=== PATIENT | female | born 1980 | race Caucasian/White ===

== ENCOUNTER 2016-04-28 21:35 | Emergency (ER) | payer MEDICAID ==
[~2016-04-28] VITALS: Ht 177.8 cm; Wt 79.0 kg
[~2016-04-28 21:35] MED LIST: ABIL2TAB2 PO; OXCA150T PO; TRAZ50TA12 PO; ZYRT10CA PO
[2016-04-28 21:45] VITALS: BP 121/92; PULSE 90; RESP 18; TEMP 98.8; O2SAT 99
[2016-05-18] MEDS ORDERED: LURA40 PO (14:39)
[2016-05-18] MEDS ORDERED: LEVA750T PO (15:04)
[2016-06-13] MEDS ORDERED: CIPR0.3S EACH EAR (14:04)
[2016-06-13] MEDS ORDERED: FLUT50SP EACH NARE (14:04)
[2016-06-13] MEDS ORDERED: ROCE1INJ3 IM (14:04)
[2016-06-20] MEDS ORDERED: CEFD300C PO (14:42)
[2016-08-09] MEDS ORDERED: AZIT250T3 PO (15:58)
== END 2016-04-28 22:29 | disposition left against medical advice (07) ==
LOC: PHED 21:35
DX: R10.9 Unspecified abdominal pain (principal)
CPT/HCPCS: 99281

== ENCOUNTER 2016-05-15 17:53 | Emergency (ER) | payer MEDICAID ==
[~2016-05-15] VITALS: Ht 177.8 cm; Wt 79.1 kg
[2016-05-15 18:08] VITALS: BP 122/81; PULSE 96; RESP 16; TEMP 98.1; O2SAT 99
[2016-05-15 19:16] LABS: BLOOD, URINE NEG (NEG); GLUCOSE,URINE 100 mg/dL (NEG); KETONE, URINE NEG (NEG); PH, URINE 5.5 (5.0-8.5)
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
[2016-05-15 19:29] LABS: NITRITE,URINE POS (NEG)
[2016-05-15] MEDS ORDERED: SODIUM CHLOR 0.9% 1000 ML INJ 1,000 ML IV SCH (19:29)
[2016-05-15 19:30] LABS: METHOD OF COLLECTION CLEAN CATCH; URINE COLOR ORANGE (YELLW/STRAW)
[2016-05-15] MEDS ORDERED: ONDANSETRON HCL 4 MG/2 ML VIAL IVP ONE (19:30)
[2016-05-15] MEDS ORDERED: SODIUM CHLORIDE 0.9% FLUSH 5 ML FLUSH IVF PRN (19:30)
[2016-05-15] MEDS ORDERED: KETOROLAC TROMETHAMINE 30 MG/ML (IVP) VIAL IVP ONE (19:30)
[2016-05-15 19:31] LABS: BACTERIA, URINE OCC /hpf; MUCUS URINE OCC /lpf (OCC); SQUAMOUS EPITHELIAL CELL URINE > 8 /hpf (0-5)
[2016-05-15 19:32] LABS: COMMENT (UR) CULTURE INDICATED; CULTURE IF INDICATED CULTURE INDICATED; RBC, URINE 0-3 /hpf (0-3)
[2016-05-15] MEDS ORDERED: ZOLO100T PO (19:39)
[2016-05-15] MEDS ORDERED: TRIL150T PO ×2 (19:39)
[2016-05-15 19:55] LABS: BASOPHIL # 0.3 TH/MM3 (0-0.2); BASOPHIL % 2.8 % (0.0-2.0); EOSINOPHIL # 0.2 TH/MM3 (0-0.4); HEMATOCRIT 38.7 % (35.0-46.0); HEMO FLAGS DIFF FINAL; LYMPHOCYTE # 2.4 TH/MM3 (1.0-4.8); MEAN CELL VOLUME 79.6 FL (80.0-100.0); MEAN CORPUSCULAR HEMOGLOBIN 27.3 PG (27.0-34.0); MEAN CORPUSCULAR HGB CONC 34.3 % (32.0-36.0); NEUT % 64.2 % (16.0-70.0); PLATELET COUNT 261 TH/MM3 (150-450); RED BLOOD COUNT 4.86 MIL/MM3 (4.00-5.30); RED CELL DISTRIBUTION WIDTH 13.2 % (11.6-17.2); WHITE BLOOD COUNT 9.5 TH/MM3 (4.0-11.0)
[2016-05-15 20:04] LABS: CHLORIDE 102 MEQ/L (98-107); SODIUM (NA) 138 MEQ/L (136-145)
[2016-05-15 20:08] LABS: ANION GAP 8 MEQ/L (5-15); BICARBONATE 28.5 MEQ/L (21.0-32.0); BLOOD UREA NITROGEN 15 MG/DL (7-18)
[2016-05-15 20:11] LABS: ALT (GPT) 22 U/L (10-53); AST (GOT) 22 U/L (15-37); GLOMERULAR FILTRATION RATE 81 ML/MIN (>89)
[2016-05-15 20:13] LABS: TOTAL BILIRUBIN ADULT 0.3 MG/DL (0.2-1.0)
[2016-05-15 20:14] LABS: ALKALINE PHOSPHATASE 85 U/L (45-117)
[2016-05-15 20:17] LABS: POTASSIUM 4.3 MEQ/L (3.5-5.1)
[2016-05-15 20:35] VITALS: RESP 16; O2SAT 98
[2016-05-15 20:36] VITALS: BP 106/64; PULSE 74; RESP 16; O2SAT 98
[2016-05-15 21:40] VITALS: BP 101/58; PULSE 75; RESP 16; TEMP 98.2; O2SAT 96
[2016-05-15 21:41] VITALS: RESP 16
--- NOTE | 2016-05-15 21:49 | RADHPO ---
EXAM DATE/TIME: 05/15/2016 20:47 [facility] COMPARISON: CT ABDOMEN & PELVIS W/O CONTRAST, November 21, 2015, 3:13. INDICATIONS : Right flank pain. ORAL CONTRAST: No oral contrast ingested. RADIATION DOSE: 13.20 CTDIvol (mGy) MEDICAL HISTORY : Cardiovascular disease. SURGICAL HISTORY : Cholecystectomy. ENCOUNTER: Initial ACUITY: 1 day PAIN SCALE: 5/10 LOCATION: Right Flank TECHNIQUE: Volumetric scanning of the abdomen and pelvis was performed. Using automated exposure control and ad justment of the mA and/or kV according to patient size, radiation dose was kept as low as reasonably achievable to obtain optimal diagnostic quality images. FINDINGS: LOWER LUNGS: The visualized lower lungs are clear. LIVER: Homogeneous density without lesion. There is no dilation of the biliary tree. Gallbladder has been r emoved. SPLEEN: Normal size without lesion. PANCREAS: Within normal limits. KIDNEYS: Normal in size and shape. 5 mm nonobstructive calculus remains evident in the upper pole of the righ t kidney. There is no mass or hydronephrosis. ADRENAL GLANDS: Within normal limits. VASCULAR: There is no aortic aneurysm. BOWEL/MESENTERY: The stomach, small bowel, and colon demonstrate no acute abnormality. There is no free intraperitone al air or fluid. ABDOMINAL WALL: Within normal limits. RETROPERITONEUM: There is no lymphadenopathy. BLADDER: No wall thickening or mass. REPRODUCTIVE: Within normal limits. INGUINAL: There is no lymphadenopathy or hernia. MUSCULOSKELETAL: Within normal limits for patient age. CONCLUSION: Status post cholecystectomy. Stable nonobstructive calculus right kidney. No evidence of acute process. Hipolito Velasquez MD on May 15, 2016 at 21:44 Board Certified Radiologist. This report was verified electronically.
[2016-05-15] MEDS ORDERED: CEPH-460 PO (21:59)
[2016-05-15] MEDS ORDERED: cefTRIAXone INJ 1,000 MG in SODIUM CHLORIDE 0.9% INJ 100 ML IV ONE (22:00)
[2016-05-18] MEDS ORDERED: LURA40 PO (14:39)
[2016-05-18] MEDS ORDERED: LEVA750T PO (15:04)
[2016-06-13] MEDS ORDERED: ROCE1INJ3 IM (14:04)
[2016-06-13] MEDS ORDERED: FLUT50SP EACH NARE (14:04)
[2016-06-13] MEDS ORDERED: CIPR0.3S EACH EAR (14:04)
[2016-06-20] MEDS ORDERED: CEFD300C PO (14:42)
[2016-08-09] MEDS ORDERED: AZIT250T3 PO (15:58)
== END 2016-05-15 22:47 | disposition home or self-care (01) ==
LOC: PHED 17:53 → PHEFT 22:47
DX: N39.0 Urinary tract infection, site not specified (principal); N20.1 Calculus of ureter; R11.2 Nausea with vomiting, unspecified; R30.0 Dysuria
CPT/HCPCS: 74176; 80053; 81001; 83690; 84703; 85025; 87086; 96361; 96365; 96375; 99284; J0696; J1885; J2405; J7030

== ENCOUNTER 2016-08-17 07:21 | Emergency (ER) | payer MEDICAID ==
[~2016-08-17] VITALS: Ht 177.8 cm; Wt 73.9 kg
[~2016-08-17 07:21] MED LIST changes: -ABIL2TAB2 PO; +AZIT250T3 PO; +CEFD300C PO; +FLUT50SP EACH NARE; +LURA40 PO; -OXCA150T PO; +TRIL150T PO
[2016-08-17 07:29] VITALS: BP 118/78; PULSE 113; RESP 16; TEMP 97.8; O2SAT 95
[2016-08-17 07:38] VITALS: BP 118/78; PULSE 113; RESP 16; TEMP 97.8; O2SAT 95
[2016-08-17 08:51] LABS: BASOPHIL % 0.8 % (0.0-2.0); EOSINOPHIL # 0.1 TH/MM3 (0-0.4); EOSINOPHIL % 1.7 % (0.0-4.0); HEMATOCRIT 45.6 % (35.0-46.0); HEMO FLAGS DIFF FINAL; LYMPH % 20.9 % (9.0-44.0); LYMPHOCYTE # 1.1 TH/MM3 (1.0-4.8); MEAN CELL VOLUME 81.2 FL (80.0-100.0); MEAN CORPUSCULAR HEMOGLOBIN 26.6 PG (27.0-34.0); MEAN CORPUSCULAR HGB CONC 32.8 % (32.0-36.0); MONO % 16.5 % (0.0-8.0); NEUT % 60.1 % (16.0-70.0); PLATELET COUNT 233 TH/MM3 (150-450); RED BLOOD COUNT 5.62 MIL/MM3 (4.00-5.30); RED CELL DISTRIBUTION WIDTH 12.9 % (11.6-17.2)
[2016-08-17 09:00] LABS: CHLORIDE 104 MEQ/L (98-107); POTASSIUM 3.3 MEQ/L (3.5-5.1); SODIUM (NA) 138 MEQ/L (136-145)
[2016-08-17] MEDS ORDERED: ONDANSETRON HCL 4 MG/2 ML VIAL IV PUSH ONE (09:00)
[2016-08-17] MEDS ORDERED: KETOROLAC TROMETHAMINE 30 MG/ML (IVP) VIAL IV PUSH ONE (09:00)
[2016-08-17] MEDS ORDERED: SODIUM CHLOR 0.9% 1000 ML INJ 1,000 ML IV SCH (09:00)
[2016-08-17 09:03] LABS: ANION GAP 9 MEQ/L (5-15); BICARBONATE 24.6 MEQ/L (21.0-32.0); BLOOD UREA NITROGEN 9 MG/DL (7-18); BLOOD, URINE LARGE (NEG); GLUCOSE,URINE NEG (NEG); KETONE, URINE TRACE mg/dL (NEG); NITRITE,URINE NEG (NEG)
[2016-08-17 09:05] VITALS: BP 118/76; PULSE 90; RESP 16; O2SAT 98
[2016-08-17 09:06] LABS: ALT (GPT) 44 U/L (10-53); AST (GOT) 22 U/L (15-37); GLOMERULAR FILTRATION RATE 84 ML/MIN (>89)
[2016-08-17 09:08] LABS: TOTAL BILIRUBIN ADULT 0.5 MG/DL (0.2-1.0)
[2016-08-17 09:09] LABS: ALKALINE PHOSPHATASE 88 U/L (45-117)
[2016-08-17 09:11] LABS: METHOD OF COLLECTION CLEAN CATCH; URINE COLOR YELLOW (YELLW/STRAW)
[2016-08-17 09:12] LABS: SQUAMOUS EPITHELIAL CELL URINE > 8 /hpf (0-5)
[2016-08-17 09:14] LABS: COMMENT (UR) CULT NOT INDICATED; CULTURE IF INDICATED CULT NOT INDICATED
[2016-08-17] MEDS ORDERED: LOPERAMIDE HCL 2 MG CAP PO ONE (10:00)
[2016-08-17] MEDS ORDERED: LOPE2CAP PO (10:17)
[2016-08-17] MEDS ORDERED: ZOFR4TAB3 SL (10:17)
--- NOTE | 2016-08-17 10:17 | PD ---
HPI Chief Complaint: GI Complaint Time Seen by Provider: 07:52 Travel History International Travel<30 days: No Contact w/Intl Traveler<30days: No Traveled to known affect area: No History of Present Illness HPI Is a 36-year-old woman presents emergency department complaining of diffuse watery diarrhea for 3 days. She was on a Z-Otis a week ago for URI symptoms. Since she's had some nausea and vomiting, some chills, some cramps, and 3 days of worsening watery diarrhea. She also had worsening low back pain which is chronic for her. She states she is not really able keep her medications down. History Past Medical History Narrative Medical Back pain Tetanus Vaccination: < 5 Years : 3 Para: 1 Social History Alcohol Use: No Tobacco Use: No Allergies-Medications (Allergen,Severity, Reaction): Coded Allergies: Bactrim (Verified Allergy, Severe, RASH, 08/17/16) Erythromycins (Verified Allergy, Severe, VOMITING, RASH, 08/17/16) Morphine (Verified Allergy, Severe, headaches, 08/17/16) Penicillin (Verified Allergy, Severe, Hives, 08/17/16) Reported Meds & Prescriptions Reported Meds & Active Scripts Active Reported Latuda (Lurasidone) 40 Mg Tab 60 Mg PO DAILY Trazodone (Trazodone HCl) 50 Mg Tab 50 Mg PO HS Review of Systems Except as stated in HPI: all other systems reviewed are Neg Physical Exam Narrative GENERAL: Well-appearing 36 year-old woman, Uncomfortable appearing, lying on her side, nontoxic. SKIN: Focused skin assessment warm/dry. HEAD: Atraumatic. Normocephalic. CARDIOVASCULAR: Regular rate and rhythm. No murmur appreciated. RESPIRATORY: No accessory muscle use. Clear to auscultation. Breath sounds equal bilaterally. GASTROINTESTINAL: Mild lower abdominal tenderness. MUSCULOSKELETAL: No obvious deformities. No clubbing. No cyanosis. No edema. NEUROLOGICAL: Awake and alert. No obvious cranial nerve deficits. Motor grossly within normal limits. Normal speech. PSYCHIATRIC: Appropriate mood and affect; insight and judgment normal. Data Data Last Documented VS Vital Signs Date Time Temp Pulse Resp B/P Pulse Ox O2 Delivery O2 Flow Rate FiO2 08/17/16 09:05 90 16 118/76 98 Room Air 08/17/16 07:38 97.8 Orders Complete Blood Count With Diff (08/17/16 08:35) Comprehensive Metabolic Panel (08/17/16 08:35) Urinalysis - C+S If Indicated (08/17/16 08:35) Ed Urine Pregnancytest Poc (08/17/16 08:35) Sodium Chlor 0.9% 1000 Ml Inj (Ns 1000 M (08/17/16 09:00) Ondansetron Inj (Zofran Inj) (08/17/16 09:00) C Diff Toxin Pcr (08/17/16 08:50) Ketorolac Inj (Toradol Inj) (08/17/16 09:00) Loperamide (Imodium) (08/17/16 10:00) Labs Laboratory Tests Test 08/17/16 08:10 White Blood Count 5.0 TH/MM3 Red Blood Count 5.62 MIL/MM3 Hemoglobin 15.0 GM/DL Hematocrit 45.6 % Mean Corpuscular Volume 81.2 FL Mean Corpuscular Hemoglobin 26.6 PG Mean Corpuscular Hemoglobin 32.8 % Concent Red Cell Distribution Width 12.9 % Platelet Count 233 TH/MM3 Mean Platelet Volume 9.4 FL Neutrophils (%) (Auto) 60.1 % Lymphocytes (%) (Auto) 20.9 % Monocytes (%) (Auto) 16.5 % Eosinophils (%) (Auto) 1.7 % Basophils (%) (Auto) 0.8 % Neutrophils # (Auto) 3.0 TH/MM3 Lymphocytes # (Auto) 1.1 TH/MM3 Monocytes # (Auto) 0.8 TH/MM3 Eosinophils # (Auto) 0.1 TH/MM3 Basophils # (Auto) 0.0 TH/MM3 CBC Comment DIFF FINAL Differential Comment Urine Collection Type CLEAN CATCH Urine Color YELLOW Urine Turbidity CLEAR Urine pH 6.0 Urine Specific [place] 1.028 Urine Protein 100 mg/dL Urine Glucose (UA) NEG mg/dL Urine Ketones TRACE mg/dL Urine Occult Blood LARGE Urine Nitrite NEG Urine Bilirubin NEG Urine Leukocyte Esterase NEG Urine RBC 50-99 /hpf Urine WBC 3-5 /hpf Urine Squamous Epithelial > 8 /hpf Cells Urine Fine Granular Casts 20-24 /lpf Microscopic Urinalysis Comment CULT NOT INDICATED Urine Collection Time 089:10 Sodium Level 138 MEQ/L Potassium Level 3.3 MEQ/L Chloride Level 104 MEQ/L Carbon Dioxide Level 24.6 MEQ/L Anion Gap 9 MEQ/L Blood Urea Nitrogen 9 MG/DL Creatinine 0.77 MG/DL Estimat Glomerular Filtration 84 ML/MIN Rate Random Glucose 119 MG/DL Calcium Level 9.1 MG/DL Total Bilirubin 0.5 MG/DL Aspartate Amino Transf 22 U/L (AST/SGOT) Alanine Aminotransferase 44 U/L (ALT/SGPT) Alkaline Phosphatase 88 U/L Total Protein 8.6 GM/DL Albumin 4.2 GM/DL [facility] Medical Decision Making Medical Screen Exam Complete: Yes Emergency Medical Condition: Yes Interpretation(s) LABS: CBC is unremarkable. CMP is unremarkable. C. difficile is pending Differential Diagnosis Anabiotic associated diarrhea, acute gastroenteritis, viral syndrome, C. difficile, other Narrative Course Medical decision making 36-year-old with watery diarrhea in the setting of recent antibiotic use. White count normal. Doubt C. difficile. She looks overall well. We'll recommend supportive treatment. C. difficile test pending. Okay with loperamide. Diagnosis Primary Impression: Diarrhea Additional Instructions: Take loperamide as prescribed. The Zofran as a for nausea or vomiting. Continue current medications. Follow-up with her primary doctor in the next 2-4 days if you're not completely well. Med/Other Pt SpecificInfo: Prescription(s) given Scripts Loperamide 2 Mg Cap2 Mg PO DIRECTED PRN (DIARRHEA) #6 CAP Ref 0 One capsule after each loose stool. Not to exceed 8 capsules per day. Prov:Ricky Dimas MD 08/17/16 Ondansetron Odt (Zofran Odt)4 Mg Tab4 Mg SL Q8HR PRN (Nausea/Vomiting) #15 TAB May substitute non-ODT form. Prov:Ricky Dimas MD 08/17/16 Disposition: 01 DISCHARGE HOME Condition: Stable Ricky Dimas MD Aug 17, 2016 10:17
[2016-08-17 14:17] LABS: C. DIFF EPI 027 PRESUMPTIVE NEGATIVE (NEGATIVE); C. DIFF TOXIN PCR NEGATIVE (NEGATIVE)
== END 2016-08-17 10:44 | disposition home or self-care (01) ==
LOC: PHED 07:21
DX: R19.7 Diarrhea, unspecified (principal); R11.2 Nausea with vomiting, unspecified
CPT/HCPCS: 80053; 81001; 84703; 85025; 87493; 96361; 96374; 96375; 99284; J1885; J2405; J7030

== ENCOUNTER → 2016-11-22 | Day surgery (SDC) | payer MEDICAID ==
[~2016-11-22] VITALS: Ht 177.8 cm; Wt 65.5 kg
[~2016-11-22] MED LIST changes: +*HYDROmorphone PF 1 MG VIAL PERIprocedural Use ONLY ONE; +ACETAMINOPHEN 1000 MG/100 ML 100 ML IV ONE; -AZIT250T3 PO; +BENA25TA6 PO; -CEFD300C PO; +CHLORHEXIDINE GLUCONATE 2 % 1 PACK (2 CLOTHS) TOPICAL PRN; +CIPROFLOXACIN/DEXT 400 MG/200 ML IV SCH; +DEPO150I IM; +FAMOTIDINE 20 MG/2 ML VIAL ONE; +FLUT1SPR5 EACH NARE; -FLUT50SP EACH NARE; +HYDROmorphone HCL PF 1 MG/ML VIAL IV PRN; +INSULIN HUMAN REGULAR 1,000 UNITS/10 ML VIAL SQ PRN; +LACTATED RINGER'S 1000 ML IV PRN; -LURA40 PO; +METOPROLOL TARTRATE 25 MG TAB PO PRN; +MIDAZOLAM HCL 2 MG/2 ML VIAL ONE; +ONDANSETRON HCL 4 MG/2 ML VIAL IV PRN; +ONDANSETRON HCL 4 MG/2 ML VIAL IV PUSH ONE; +PHENYLEPH/NS 1000 MCG/10 ML SYR IV ONE; +POVIDONE IODINE 5% (ANTISEPSIS KIT) 4 APPLICATIONS EACH NARE PRN; +PRIS50TA PO; +PROPOFOL 200 MG/20 ML AMP IV ONE; +SODIUM CHLORID 0.9% 500 ML IV PRN; -TRIL150T PO; +ZOFR4TAB3 SL; -ZYRT10CA PO; +oxyCODONE/ACETAMINOPHEN 5 MG/325 MG TAB PO PRN
--- NOTE | 2016-11-22 06:16 | RADRPT ---
EXAM DATE/TIME: 11/22/2016 05:42 [facility] COMPARISON: CT ABDOMEN & PELVIS W/O CONTRAST, May 15, 2016, 20:47. INDICATIONS : Pre op lithotripsy. MEDICAL HISTORY : None. SURGICAL HISTORY : None. ENCOUNTER: Initial ACUITY: 1 day PAIN SCORE: 0/10 LOCATION: Bilateral Abdomen FINDINGS: There is a 4 mm calcified calculus in the superior pole of the right kidney corresponding to prior CT exam. No definite additional radiopaque calculi are demonstrated with large portions of the left kid renny obscured by overlying bowel gas. Stool is seen throughout the colon. Surgical clips in the right upper quadrant. Osseous structures are intact. CONCLUSION: 1. 4 mm calcified calculus in the superior pole the right kidney similar to prior CT exam. No additio nal definite radiopaque renal calculi demonstrated. Martin Garcia MD on November 22, 2016 at 6:12 Board Certified Radiologist. This report was verified electronically.
[2016-11-22 07:51] LABS: AUTOMATED NEUTROPHIL # 6.3 TH/MM3 (1.8-7.7); BASOPHIL % 0.4 % (0.0-2.0); EOSINOPHIL # 0.1 TH/MM3 (0-0.4); EOSINOPHIL % 1.4 % (0.0-4.0); HEMATOCRIT 40.8 % (35.0-46.0); LYMPH % 21.3 % (9.0-44.0); LYMPHOCYTE # 1.9 TH/MM3 (1.0-4.8); MEAN CELL VOLUME 81.8 FL (80.0-100.0); MEAN CORPUSCULAR HEMOGLOBIN 28.4 PG (27.0-34.0); MEAN CORPUSCULAR HGB CONC 34.7 % (32.0-36.0); MONO % 5.9 % (0.0-8.0); PLATELET COUNT 217 TH/MM3 (150-450); RED BLOOD COUNT 4.99 MIL/MM3 (4.00-5.30); WHITE BLOOD COUNT 8.9 TH/MM3 (4.0-11.0)
[2016-11-22 07:53] LABS: HEMO FLAGS AUTO DIFF
[2016-11-22 08:11] LABS: SCAN/DIFF AUTO DIFF CONFIRMED
--- NOTE | 2016-11-22 08:58 | PD.OP ---
Operative Report Date of Surgery: Nov 22, 2016 Preoperative Diagnosis: Right upper pole renal calculus Postoperative Diagnosis: Same Procedure: Right extracorporeal shockwave lithotripsy Anesthesia: Gen. LMA Surgeon: Christophe Swain Blood Tester Fowl(s): None Resident Surgeon: None Operation and Findings: 36-year-old female with findings of a 5 mm right upper pole renal stone with recurrent urinary tract infections elected to undergo right extraportal shockwave lithotripsy. Risk and benefits were discussed preoperative she is willing to proceed. Patient brought to the operating room and identified by myself as Samina Medina. She is placed on the operating table in the supine position, received preprocedure antibiotics and general anesthesia was administered. Under fluoroscopic and ultrasound imaging guidance the stone was localized in the right upper pole. ESWL therapy commenced with the patient receiving a total 2500 shocks with good fragmentation the stone visualized under fluoroscopic and ultrasonic imaging. She tolerated the procedure well and was extubated and awoken and transferred to the recovery room in stable condition. She will follow-up in 2 weeks to obtain a KUB x-ray prior to her appointment. Christophe Swain DO Nov 22, 2016 08:58
[2016-11-22 10:30] VITALS: BP 104/76; PULSE 84; RESP 16; TEMP 98; O2SAT 97
== END | disposition home or self-care (01) ==
LOC: HSDC 05:26
PROVIDERS: ATTEND Urology
DX: N20.0 Calculus of kidney (principal); I10 Essential (primary) hypertension; F32.9 Major depressive disorder, single episode, unspecified; F41.9 Anxiety disorder, unspecified; M19.90 Unspecified osteoarthritis, unspecified site; Z79.899 Other long term (current) drug therapy
CPT/HCPCS: 00872; 50590; 74000; 85025; J0131; J0744; J1170; J2250; J2370; J2405; J3010; J7120